=== PATIENT | male | born 1965 | race Caucasian/White ===

== ENCOUNTER 2022-05-19 14:00 | Outpatient (CLI) | payer BC, SELFPAY ==
--- NOTE | 2022-05-19 13:30 | CRLHL7_ITS ---
For Patients: As a result of the Century Cures Act, medical imaging exams and procedure reports are released immediately into your electronic medical record. You may view this report before your referring provider. If you have questions, please contact your health care provider. INDICATION: Dysuria. TECHNIQUE: CT abdomen and pelvis without contrast. COMPARISON: None. FINDINGS: Lower chest: Calcified left lower lobe granuloma. ABDOMEN: Liver: Normal attenuation. Gallbladder and biliary: Normal gallbladder without radiopaque stone. Normal caliber bile ducts. Spleen: Calcified splenic granuloma. Pancreas: The noncontrast pancreas is homogeneous in attenuation without peripancreatic inflammatory changes or ductal dilatation. Adrenal glands: Normal adrenal glands. Kidneys and ureters: Normal attenuation. No radio-opaque calculi. No hydroureteronephrosis. GI tract: The stomach is relatively decompressed. Normal caliber small and large bowel loops. Normal appendix. Vascular structures: Normal caliber abdominal aorta. Lymph nodes: No lymphadenopathy in the abdomen or pelvis by size criteria. Peritoneum: No free air, free fluid, or focal drainable fluid collection. PELVIS: Genitourinary system: Although relatively decompressed there is circumferential wall thickening of the urinary bladder. Normal size prostate. Symmetric seminal vesicles. Calcified vas deferens suggesting underlying diabetes. SKELETAL STRUCTURES AND SOFT TISSUES: No suspicious lytic or blastic lesions. IMPRESSION: 1. No acute abdominal pelvic process. No obstruction. No nephrolithiasis. No hydroureteronephrosis. 2. Although relatively decompressed there is suggestion of circumferential wall thickening of the urinary bladder. Recommend correlation with urinalysis if not already performed to assess for underlying cystitis. Please note that all CT scans at this facility use dose modulation, iterative reconstruction, and/or weight-based dosing when appropriate to reduce radiation dose to as low as reasonably achievable. Dictated by Vic Cooper MD @ 05/19/2022 3:35:44 PM (Electronically Signed)
--- OUTSIDE RECORDS SUMMARY | 2022-05-19 14:02 | XMS_ITS | Encounter Summary ---
:1965 Author Organization [facility] Address [address] [place] [address] Care Team Providers Name Role Phone [facility], [facility]- Reason for Visit Reason Onset Date Comments Results 05/11/2022 Encounter Details Date Type Department Care Team Description 05/11/2022 Telephone [facility] Refugio Leigh RN Results Emergency Dept [address] [place] [address] Social History Tobacco Use Types Packs/Day Years Used Date Smoking Tobacco: Never Assessed Sex Assigned at Date Recorded Not on file documented as of this encounter Miscellaneous Notes Telephone Encounter - Refugio Leigh RN - 05/11/2022 3:52 PM CDT [facility] () Emergency Department Lab result notification [facility] ED lab result protocol used STD Testing Reason for call Notify of lab results, assess symptoms, review ED providers recommendations/discharge instructions (if necessary) and advise per ED lab result f/u protocol Lab Result (including Rx patient on, if applicable) Component Latest Ref Rng & Units 05/08/2022 Chlamydia Trachomatis PCR Negative Negative N Gonorrhea PCR Negative Negative paper machine tender (Patient???s current Symptoms), include time called. 3:53 PM - patient calling to get test results - continues with symptoms Genitourinary symptoms: continues with burning in urethra - says he cannot sleep Fever: No Testicular swelling/pain: No RN Recommendations/Instructions per [facility] ED lab result protocol Patient notified of lab result and treatment recommendations. We discussed ED calls on positive results and will not call on negative results. Advised of negative results and to follow up for additional assessment in 24 hours due to ongoing symptoms - preferably with a primary care clinic - He begins to go into dynamics related to his situation or clinic situation/life and discuss that tech writer doesn'tfeel his symptoms are emergent at this time and he could follow up with PCP/urgent care but if he ishaving testicular pain, fevers, swelling, abdominal pain, severe pain to return - discussed we can have him speak with triage review any severe symptoms or need to return to ED or help patient find an appointment within 24 hours with primary care. Please Contact your PCP clinic or return to the Emergency department if your: ??? Symptoms return. ??? Symptoms do not improve after 3 days on antibiotic. ??? Symptoms do not resolve after completing antibiotic. ??? Symptoms worsen or other concerning symptom's. PCP follow-up Questions asked: YES Refugio Leigh RN [facility] Emergency Dept Lab Result RN documented in this encounter Plan of Treatment Not on filedocumented as of this encounter Visit Diagnoses Not on filedocumented in this encounter Care Teams Clip Baker Relationship Specialty Start Date End Date [facility] And PCP - General 05/08/22 [facility] [address] [place] [address] documented as of this encounter
--- OUTSIDE RECORDS SUMMARY | 2022-05-19 14:02 | XMS_ITS | Clinical Summary ---
:1965 Author Organization [facility] [place] [address] Care Team Providers Name Role Phone Vic Jack MD Primary Care Provider [phone] Allergies Active Allergy Reactions Severity Noted Date Comments Penicillins Hives 07/08/2007 Medications Medication Sig Dispensed Refills Start Date End Date Status CPAPIndications: GABE All CPAP supplies 1 unit 12 04/04/2018 Active (obstructive sleep - mask, hose, etc. apnea) zolpidem (AMBIEN) 10 TAKE 1 TABLET BY 30 tablet 5 06/23/2018 Active mg tabletIndications: MOUTH AT BEDTIME Insomnia, unspecified NEEDED FOR type SLEEP Active Problems Problem Noted Date GABE (obstructive sleep apnea) 07/22/2015 Plantar fasciitis 07/06/2012 Immunizations Name Administration Dates Next Due Hepatitis A (Adult) 07/15/2015 Influenza, IIV3 (Age >=3 years) 05/20/2012, 06/04/2010 Influenza, IIV4 07/15/2015 Tdap 07/02/2012 Typhoid (injectable) 07/15/2015 Family History Medical History Relation Name Comments Cancer Maternal Grandmother Lung Diabetes Maternal Grandmother Type 1 Cancer-colon Paternal Aunt Cancer Paternal Grandfather Esophageal Heart Disease Paternal Grandfather Relation Name Status Comments Brother Alive Daughter Alive Father Alive Maternal Grandfather Maternal Grandmother Mother Alive Paternal Aunt Paternal Grandfather Paternal Grandmother Sister Alive Son Alive Social History Tobacco Use Types Packs/Day Years Used Date Never Smoker Smokeless Tobacco: Never Used Tobacco Cessation: Counseling Given: Yes Alcohol Use Standard Drinks/Week Comments Yes 0 (1 standard drink = 0.6 oz pure alcoho l) Social Alcohol Habits Answer Date Recorded How often do you have a drink containing alcohol? Not asked How many drinks containing alcohol do you have on a typical Not asked day when you are drinking? How often do you have six or more drinks on one occasion? No t asked Comment: Social 07/06/2012 Sex Assigned at Date Recorded Not on file Obstetrics History Last Filed Vital Signs Vital Sign Reading Time Taken Comments Blood Pressure 134/84 04/03/2018 1:05 PM CDT Pulse 68 04/03/2018 1:05 PM CDT Temperature 36.8 ??C (98.3 ??F) 06/06/2016 11:49 AM CDT Respiratory Rate 16 04/03/2018 1:05 PM CDT Oxygen Saturation 97% 01/15/2015 8:36 AM CDT Inhaled Oxygen Concentration - - Weight 88.2 kg (194 lb 6.4 oz) 04/03/2018 1:05 PM CDT Height 173.5 cm (5' 8.3) 07/02/2012 10:32 AM COSMETICIAN Body Mass Index 29.3 07/02/2012 10:32 AM COSMETICIAN Plan of Treatment Health Maintenance Due Date Last Done Comments COVID-19 vaccine series (#1) 1965 BMI (ht and wt on same day) for age 0702/14/1982 18+ Hepatitis C screening for age 18-79 02/14/1982 Zoster (shingles) series for age 50+ 02/14/2014 (1 of 2) Lipids for age 45-75 07/02/2017 07/02/2012 Depression screening for age 12+ 04/03/2019 04/03/2018 Colonoscopy through age 75 10/10/2020 10/11/2015, 6 Influenza for age 50-64 04/06/2022 07/15/2015, 05/20/2012, 06/04/2010 Tetanus booster 07/02/2022 07/02/2012 Tdap Completed 07/02/2012 Results Not on filefrom Last 3 Months Insurance Payer Benefit Plan / Subscriber ID Effective Dates Phone Addre ss Type Group BLUE CROSS BLUE CROSS OF [id number] 2014-Present [address] [address] [place] [address] Guarantor Name Account Type Relation to Date of Phone Billing Address Patient Daniel Mccrary Personal/Famil Self 1965 [address] (Home) [facility] [address] Care Teams Move Coordinator Relationship Specialty Start Date End Date Vic Jack MD PCP - General Family Practice 09/26/11
--- OUTSIDE RECORDS SUMMARY | 2022-05-19 14:02 | XMS_ITS | Clinical Summary ---
:1965 Author Organization [facility] Address [address] [place] [address] Care Team Providers Name Role Phone [facility], [facility]- Allergies Active Allergy Reactions Severity Noted Date Comments Penicillin G 05/08/2022 Encounters Date Type Specialty Care Team Description 05/11/2022 Telephone EMERGENCY MEDICINE Refugio Leigh RN R esults 05/08/2022 Emergency EMERGENCY MEDICINE William Humphreys MD Ure thritis from Last 3 Months Social History Tobacco Use Types Packs/Day Years Used Date Smoking Tobacco: Never Assessed Sex Assigned at Date Recorded Not on file Last Filed Vital Signs Vital Sign Reading Time Taken Comments Blood Pressure 158/92 05/08/2022 3:27 AM CDT Pulse 82 05/08/2022 3:27 AM CDT Temperature 36.4 ??C (97.6 ??F) 05/08/2022 3:27 AM CDT Respiratory Rate 20 05/08/2022 3:27 AM CDT Oxygen Saturation 100% 05/08/2022 3:27 AM CDT Inhaled Oxygen Concentration - - Weight - - Height - - Body Mass Index - - Plan of Treatment Health Maintenance Due Date Last Done Comments ADVANCE CARE PLANNING 1965 ANNUAL REVIEW OF HM ORDERS 1965 CT COLONOGRAPHY 1965 FIT-DNA (Cologuard) 1965 FIT 1965 FLEX SIG 1965 HEPATITIS B IMMUNIZATION (1 1965 of 3 - 3-dose series) YEARLY PREVENTIVE VISIT 1965 COVID-19 Vaccine (#1) 1965 COLONOSCOPY 02/14/1974 COLORECTAL CANCER SCREENING 02/14/1974 HIV SCREENING 02/14/1979 HEPATITIS C SCREENING 02/14/1982 LIPID 02/14/1999 ZOSTER IMMUNIZATION (1 of 2) 02/14/2014 PHQ-2 (once per calendar 08/06/2021 year) INFLUENZA VACCINE (#1) 2022 07/15/2015, 05/20/2012, 06/04/2010 DTAP/TDAP/TD IMMUNIZATION (2 07/02/2022 07/02/2012 - Td or Tdap) IPV IMMUNIZATION Aged Out No longer eligi ble based on patient's age to complete this to pic MENINGITIS IMMUNIZATION Aged Out No longe r eligible based on patient's age to complete [facility] to [facility] Pneumococcal Vaccine: Aged Out No longer eligible based Pediatrics (0 to 5 Years) and on patient's age to At-Risk Patients (6 to 64 comple te this topic Years) Procedures Procedure Name Priority Date/Time Associated Comments Diagnosis NEISSERIA GONORRHOEAE STAT 05/08/2022 4:42 AM Results for this PCR CDT procedure are i n the results section. CHLAMYDIA TRACHOMATIS STAT 05/08/2022 4:42 AM Results for this PCR CDT procedure are i n the results section. ROUTINE UA WITH STAT 05/08/2022 3:27 AM Result s for this MICROSCOPIC CDT procedure are i n the results section. from Last 3 Months Results Neisseria gonorrhoea PCR (05/08/2022 4:42 AM CDT) [facility] Method Time Signature Neisseria Negative Negative 05/09/2022 [facility] gonorrhoeae 12:19 PM CDT LABORATORY Comment: Negative for N. gonorrhoeae rRN A by flat folding machine operator mediated amplification. A negative result by flat folding machine operator mediate d amplification does not preclude the presence of C. trachomatis infection bec ause results are dependent on proper and adequate collection, absence of inhibito rs and sufficient rRNA to be detected. Specimen Anatomical Collection Method Collection Time Receive d Time (Source) Location / / Volume Laterality Urine URETHRAL STRUCTURE Non-blood 05/08/2022 4:42 AM 10/2021 4:49 / Unknown Collection / CDT AM CDT Unknown William Humphreys MD LAB - MICRO GENERAL ORDERABL ES Performing Organization Address City/State/ZIP Code Phon e Number [facility] [place] [id number] Diag. Lab [address] [facility], [address] Chlamydia trachomatis PCR (05/08/2022 4:42 AM CDT) [facility] [employer] Method Time Signature Chlamydia Negative Negative 05/09/2022 [facility] trachomatis 12:19 PM CDT LABORATORY Comment: A negative result by transcript ion mediated amplification does not preclude the presence of C. trachomatis infection because results are dependent on proper and adequate collection, absence of inhibito rs and sufficient rRNA to be detected. Specimen Anatomical Collection Method Collection Time Receive d Time (Source) Location / / Volume Laterality Urine URETHRAL STRUCTURE Non-blood 05/08/2022 4:42 AM 10/2021 4:49 / Unknown Collection / CDT AM CDT Unknown William Humphreys MD LAB - MICRO GENERAL ORDERABL ES Performing Organization Address City/State/ZIP Code Phon e Number [facility]AT[facility] [place] [address] Diag. Lab [address] [facility], [address] (ABNORMAL) UA with Microscopic (05/08/2022 3:27 AM CDT) [facility] Method Time Signature Color Urine Yellow Colorless, 05/08/2022 [facility] Straw, 3:58 AM CDT Light Yellow, Yellow Appearance Urine Clear Clear 05/08/2022 [facility] Y 3:58 AM CDT Glucose Urine Negative Negative 05/08/2022 LABORATORY mg/dL 3:58 AM CDT Bilirubin Urine Negative Negative 05/08/2022 LABORATORY 3:58 AM CDT Ketones Urine 10 (A) Negative 05/08/2022 LABORATORY mg/dL 3:58 AM CDT Specific [place] 1.030 1.003 - 05/08/2022 [facility] Y Urine 1.035 3:58 AM CDT Blood Urine Negative Negative 05/08/2022 [facility] 3:58 AM CDT pH Urine 5.5 5.0 - 7.0 05/08/2022 LABORATORY 3:58 AM CDT Protein Albumin 30 (A) Negative 05/08/2022 LABORATORY Urine mg/dL 3:58 AM CDT Urobilinogen Normal Normal, 2.0 05/08/2022 LABORATORY Urine mg/dL 3:58 AM CDT Nitrite Urine Negative Negative 05/08/2022 [facility] 3:58 AM CDT Leukocyte Negative Negative 05/08/2022 [facility] Esterase Urine 3:58 AM CDT Mucus Urine Present (A) None Seen 05/08/2022 [facility] /LPF 3:58 AM CDT RBC Urine 0 <=2 /HPF 05/08/2022 [facility] 3:58 AM CDT WBC Urine 1 <=5 /HPF 05/08/2022 [facility] 3:58 AM CDT Specimen Anatomical Collection Method Collection Time Receive d Time (Source) Location / / Volume Laterality Urine URINE SPECIMEN Non-blood 05/08/2022 3:27 AM 022 3:49 OBTAINED BY CLEAN Collection / CDT AM CDT CATCH PROCEDURE / Unknown Unknown William Humphreys MD LAB - URINE ORDERABLES Performing Organization Address City/State/ZIP Code Phon [place] [address] Care Lab [address] Lab (1st floor, no room number) from Last 3 Months Insurance Payer Benefit Plan / Subscriber ID Effective Dates Phone Addre ss Type Group BCBS BCBS OUT OF [id number] 2022-[facility] [phone] [address] [address] [place] [address] Guarantor Name Account Type Relation to Date of Phone Billing Address Patient Daniel Mccrary Personal/Famil Self 1965 [address] (Home) [place] [id number] Care Teams Business Objects Consultant Relationship Specialty Start Date End Date [facility] And PCP - General 05/08/[address] [facility] [place] [address]
--- OUTSIDE RECORDS SUMMARY | 2022-05-19 14:02 | XMS_ITS | Encounter Summary ---
:1965 Author Organization [facility] Address [address] [place] [address] Care Team Providers Name Role Phone [facility], [facility]- Encounter Details Date Type Department Care Team Description 05/08/2022 [facility] William Humphreys MD Urethritis Emergency Dept [facility] [address] [place] [address] [facility] [phone] [place], [place] [id number] (Wo rk) Social History Tobacco Use Types Packs/Day Years Used Date Smoking Tobacco: Never Assessed Sex Assigned at Date Recorded Not on file documented as of this encounter Last Filed Vital Signs Vital Sign Reading Time Taken Comments Blood Pressure 158/92 05/08/2022 3:27 AM CDT Pulse 82 05/08/2022 3:27 AM CDT Temperature 36.4 ??C (97.6 ??F) 05/08/2022 3:27 AM CDT Respiratory Rate 20 05/08/2022 3:27 AM CDT Oxygen Saturation 100% 05/08/2022 3:27 AM CDT Inhaled Oxygen Concentration - - Weight - - Height - - Body Mass Index - - documented in this encounter Discharge Instructions AttachmentsThe following attachments cannot be sent through Care Everywhere. Urethritis in Men (Luxembourger)documented in this encounter ED Notes Tenisha Shi RN - 05/08/2022 3:26 AM CDT Pt presents with burning/itchy with urination x10 days. Also notes fatigue. Started Cipro on Wednesday, saw improvement but now feels worse Triage Assessment Row Name 05/08/22 0326 Triage Assessment (Adult) Airway WDL WDL Cognitive/Neuro/Behavioral WDL Cognitive/Neuro/Behavioral WDL WDL William Humphreys MD - 05/08/2022 3:13 AM CDT History Chief Complaint: UTI The history is provided by the patient. Daniel Mccrary is a 57 year old male with history of GABE who presents with UTI. Patient reports he has been experiencing constant burning sensation with urination for past 10 days. He also endorses urinary frequency. He notes he recently had a new sexual partner, but reports he had protected sex. Patient reports he has been on Cipro for past 6 days. He endorses feeling hot and cold. He states he is otherwise healthy. He reports no measured fever, genital rash, or penile discharge. Review of Systems Constitutional: Positive for chills. Negative for fever. Genitourinary: Positive for dysuria and frequency. Negative for penile discharge. Skin: Negative for rash (genital). All other systems reviewed and are negative. Allergies: Penicillin G Medications: CPAP Zolpidem Past Medical History: GABE Past Surgical History: Hernia repair, left Shoulder arthroscopy, right Tonsillectomy Adenoidectomy Vasectomy Colonoscopy Social History: The patient presents to the ED alone PCP: [facility], [facility] Physical Exam Patient Vitals for the past 24 hrs: BP Temp Temp src Pulse Resp SpO2 05/08/22 0327 (!) 158/92 97.6 ??F (36.4 ??C) Temporal 82 20 100 % Physical Exam Constitutional: Oriented to person, place, and time. HENT: Head: Normocephalic. Mouth/Throat: Oropharynx is clear and moist. Eyes: EOM are normal. Pupils are equal, round, and reactive to light. Neck: Neck supple. Cardiovascular: Normal rate, regular rhythm and normal heart sounds. Exam reveals no gallop and no friction rub. No murmur heard. Pulmonary/Chest: Effort normal and breath sounds normal. No respiratory distress. No wheezes. No rales. No reproducible chest wall pain. Abdominal: Soft. No distension. No tenderness. No rebound and no guarding. Musculoskeletal: Normal range of motion. Neurological: Alert and oriented to person, place, and time. Moves all 4 extremities spontaneously Skin: No rash noted. No pallor. : Normal anatomy. No rash noted. No testicular tenderness. Emergency Department Course Laboratory: Labs Ordered and Resulted from Time of ED Arrival to Time of ED Departure ROUTINE UA WITH MICROSCOPIC - Abnormal Result Value Color Urine Yellow Appearance Urine Clear Glucose Urine Negative Bilirubin Urine Negative Ketones Urine 10 (*) Specific Canyon Urine 1.030 Blood Urine Negative pH Urine 5.5 Protein Albumin Urine 30 (*) Urobilinogen Urine Normal Nitrite Urine Negative Leukocyte Esterase Urine Negative Mucus Urine Present (*) RBC Urine 0 WBC Urine 1 CHLAMYDIA TRACHOMATIS PCR NEISSERIA GONORRHOEAE PCR Emergency Department Course: Reviewed: I reviewed nursing notes, vitals, past medical history and Care Everywhere Assessments: 0421 I obtained history and examined the patient as noted above. I rechecked the patient and explained findings. Interventions: 0518 Zithromax 1000 mg PO 0518 Rocephin in Xylocaine 500 mg IM Disposition: The patient was discharged to home. Impression & Plan Medical Decision Making: Daniel Mccrary is a 57 year old male who presents for evaluation of UTI. This is consistent with urethritis. Given age and risk factors will treat empirically for GC/Chlam and send PCR. No definitive signs of other STI's although patient cautioned he needs testing for HIV, syphilis, and hepatitis. Doubt straight UTI. No signs of systemic symptoms. No signs of pyelonephritis. No signs of acute seriousautoimmune disease but needs to follow up with primary for further evaluation. Diagnosis: ICD-10-CM 1. Urethritis N34.2 Scribe Disclosure: I, Boone Azul, am serving as a scribe at 4:21 AM on 05/08/2022 to document services personally performed by William Humphreys MD based on my observations and the provider's statements to me. William Humphreys MD 05/08/22 0742 documented in this encounter Miscellaneous Notes Result Encounter Note - Mendoza Otoole RN - 05/08/2022 5:22 AM CDT Final result for both N. Gonorrhoeae PCR and Chlamydia Trachomatis PCR are NEGATIVE. No treatment or change in treatment per [facility] ED Lab Result N. Gonorrhea AND/OR Chlamydia T. protocol. documented in this encounter Plan of Treatment Not on filedocumented as of this encounter Procedures Procedure Name Priority Date/Time Associated Comments [...] procedure are i n the results section. documented in this encounter Results Neisseria gonorrhoea PCR (05/08/2022 4:42 AM CDT) [facility] Method Time Signature Neisseria Negative Negative 05/09/2022 [facility] gonorrhoeae 12:19 PM CDT LABORATORY Comment: Negative for N. gonorrhoeae rRN A by tobacco cutter mediated amplification. A negative result by tobacco cutter mediate d amplification does not preclude the [...] Code Phon e Number [facility] LABORATORY [facility] [place] [phone] Diag. Lab [address] [facility], [address] Chlamydia trachomatis PCR (05/08/2022 4:42 AM CDT) [facility] Method Time Signature Chlamydia Negative Negative 05/09/2022 [...] Code Phon e Number UU IDD LABORATORY [facility] [place] [phone] Diag. Lab [address] [facility], [address] (ABNORMAL) UA with Microscopic (05/08/2022 3:27 AM CDT) [facility] Method Time Signature Color Urine Yellow Colorless, 05/08/2022 LABORATORY Straw, 3:58 AM CDT Light Yellow, Yellow Appearance Urine Clear Clear 05/08/2022 [facility] LABORATOR Y 3:58 AM CDT Glucose Urine Negative Negative 05/08/2022 LABORATORY mg/dL 3:58 AM CDT Bilirubin Urine Negative Negative 05/08/2022 [facility] LABORATORY 3:58 AM CDT Ketones Urine 10 (A) Negative 05/08/2022 LABORATORY mg/dL 3:58 AM CDT Specific Canyon 1.030 1.003 - 05/08/2022 LABORATOR Y Urine 1.035 3:58 AM CDT Blood Urine Negative Negative 05/08/2022 LABORATORY 3:58 AM CDT pH Urine 5.5 5.0 - 7.0 05/08/2022 [facility] LABORATORY 3:58 AM CDT Protein Albumin 30 (A) Negative 05/08/2022 LABORATORY Urine mg/dL 3:58 AM CDT Urobilinogen Normal Normal, 2.0 05/08/2022 LABORATORY Urine mg/dL 3:58 AM CDT Nitrite Urine Negative Negative 05/08/2022 [facility] LABORATORY 3:58 AM CDT Leukocyte Negative Negative 05/08/2022 LABORATORY Esterase Urine 3:58 AM CDT Mucus Urine Present (A) None Seen 05/08/2022 [facility] LABORATORY /LPF 3:58 AM CDT RBC Urine 0 <=2 /HPF 05/08/2022 [facility] LABORATORY 3:58 AM CDT WBC Urine 1 <=5 /HPF 05/08/2022 LABORATORY 3:58 AM CDT Specimen Anatomical Collection Method Collection Time Receive d Time (Source) Location / / Volume Laterality Urine URINE SPECIMEN Non-blood 05/08/2022 3:27 AM 022 3:49 OBTAINED BY CLEAN Collection / CDT AM CDT CATCH PROCEDURE / Unknown Unknown William Humphreys MD LAB - URINE ORDERABLES Performing Organization Address City/State/ZIP Code Phon [place] [address] Care Lab [address] [facility] Lab (1st floor, no room number) documented in this encounter Visit Diagnoses Diagnosis Urethritis Urethritis, unspecified documented in this encounter Administered Medications Inactive Administered Medications - up to 3 most recent administrations Medication Order MAR Action Action Date Dose Rate Site azithromycin (ZITHROMAX) tablet Given 05/08/2022 5:18 AM CDT 1,0 00 mg 1,000 mg STAT, 1,000 mg, Oral, ONCE, On 05/08/22 at 0430, For 1 dose, Indications: sti cefTRIAXone (ROCEPHIN) 500 mg in Given 05/08/2022 5:18 AM CDT 50 0 mg Left Deltoid lidocaine (PF) (XYLOCAINE) 1 % injection STAT, 500 mg, Intramuscular, ONCE, On 05/08/22 at 0430, For 1 dose, Indications: sti documented in this encounter Active and Recently Administered Medications Times are shown in CDT. Scheduled Medication Order 05/06/2022 05/07/2022 05/08/2022 azithromycin (ZITHROMAX) tablet 1,000 mg (COMPLETED) 517 (Given - Provider: Shikha Briones RN) STAT, 1,000 mg, Oral, ONCE, On Mon at 0430, For 1 dose, Indications: sti cefTRIAXone (ROCEPHIN) 500 mg in lidocai ne (PF) (XYLOCAINE) 1 % injection (COMPLETED) 517 (Given - Provid er: Shikha Briones RN) STAT, 500 mg, Intramuscular, ONCE, On Mo n 05/08/22 at 0430, For 1 dose, Indications: sti documented in this encounter Care Teams Stringing Machine Operator Relationship Specialty Start Date End Date [facility] And PCP - General 05/08/22 [facility] [address] [place] [id number] documented as of this encounter
== END 2022-05-19 14:01 | disposition home or self-care (01) ==
LOC: CT 14:01
PROVIDERS: PCP Family Medicine; Visit Provider Family Medicine
DX: R30.0 Dysuria (principal)
CPT/HCPCS: 74176; 80048; 84153; 86592; 86703; 87086

== ENCOUNTER 2022-10-18 09:27 | Outpatient (CLI) | payer BC, SELFPAY | END 2022-10-18 09:28 | disposition home or self-care (01) | PROVIDERS: PCP Family Medicine; Visit Provider Family Medicine | DX: C43.9 Malignant melanoma of skin, unspecified (principal); Z13.6 Encounter for screening for cardiovascular disorders; Z12.5 Encounter for screening for malignant neoplasm of prostate | CPT/HCPCS: 80053; 80061; 84153; 85025; 86140 ==

== ENCOUNTER 2024-07-02 09:02 | Outpatient (CLI) | payer OTHER, SELFPAY ==
--- OUTSIDE RECORDS SUMMARY | 2024-07-02 09:05 | XMS_ITS | Clinical Summary ---
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 Gender Identity Not on file Sexual Orientation Not on file Last Filed Vital Signs Vital Sign Reading Time Taken Comments Blood Pressure 158/92 05/08/2022 3:27 AM CDT Pulse 82 05/08/2022 3:27 AM CDT Temperature 36.4 C (97.6 F) 05/08/2022 3:27 AM CDT Respiratory Rate 20 05/08/2022 3:27 AM CDT Oxygen Saturation 100% 05/08/2022 3:27 AM CDT Inhaled Oxygen Concentration - - Weight - - Height - - Body Mass Index - - Plan of Treatment Health Maintenance Due Date Last Done Comments ADVANCE CARE PLANNING 1965 ANNUAL REVIEW OF HM ORDERS 1965 CT COLONOGRAPHY 1965 FIT 1965 FLEX SIG 1965 GLUCOSE 1965 YEARLY PREVENTIVE VISIT 1965 sDNA (Cologuard) 1965 COLONOSCOPY 02/14/1974 COLORECTAL CANCER SCREENING 02/14/1974 HIV SCREENING 02/14/1979 HEPATITIS C SCREENING 02/14/1982 LIPID 2004 ZOSTER IMMUNIZATION (1 of 2) 02/14/2014 DTAP/TDAP/TD IMMUNIZATION (2 - Td or Tdap) 07/02/2022 07/02/2012 PHQ-2 (once per calendar year) 2023 COVID-19 Vaccine (1 - 2023-2 5 season) 2024 INFLUENZA VACCINE (#1) 2024 5, 05/20/2012, 06/04/2010 RSV VACCINE (1 - 1-dose 75+ series) 02/14/2039 HPV IMMUNIZATION Aged Out No longer e ligible based on patient's age to complete this topic MENINGITIS IMMUNIZATION Aged Out No l onger eligible based on patient's age to complete this topic Pneumococcal Vaccine: Pediatrics (0 to 5 Years) and At-Risk Patients (6 to 64 Years) Aged Out No longer eligible b ased on patient's age to complete this topic RSV MONOCLONAL ANTIBODY Aged Out No l onger eligible based on patient's age to complete this topic [place] [address] [place] [address] OUT OF STATE Care Teams Electrician Third Relationship Specialty Start Date End Date [facility] [address] [place] [address] PCP - General 05/08/22
--- OUTSIDE RECORDS SUMMARY | 2024-07-02 09:05 | XMS_ITS | Referral Summary ---
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
--- OUTSIDE RECORDS SUMMARY | 2024-07-02 09:05 | XMS_ITS | Data Portability ---
Author Organization [place] [facility] Address [address] [place] [address] Assessment No assessment recorded. Plan of Treatment Reminders Order Date Submit Date Provider Last Modified By Organization Details Last Modified Time Details Appointments None recorded. Lab PSA, serum or plasma 2021 022 [email or web address] 2 [facility], [address], [place], [address], 2 11:16:54 urinalysi s, dipstick 2021 022 [email or web address] 2 [facility], [facility], [facility] [address], [place], [address], 2 11:16:54 urinalysi s, dipstick 2021 022 [email or web address] 2 [facility], [address], [address], [place], [address], 2 16:38:15 urinalysi s, dipstick 2022 023 [email or web address] 2 [facility], [address], [address], [place], [address], 3 11:18:21 urinalysi s, dipstick 2022 023 [email or web address] 2 [facility], [address], [address], [place], [address], 17:30:55 Referral None recorded. Procedures cystoscop y (PROC) 2021 [email or web address] Not available 11:32:59 Surgeries None recorded. Imaging None recorded. Medication Orders Uribel 118 mg-10 mg-40.8 mg-36 mg capsule 2021 022 [facility]13, [address], [place], [place], [id number], 10:42:46 tamsulosi n 0.4 mg capsule 2021 022 [place] [facility]56807, [address], [place], [place], [id number], 11:17:03 tamsulosi n 0.4 mg capsule 2021 022 [place] [facility] #35378, [address], [place], [place], [id number], 16:38:23 tamsulosi n 0.4 mg capsule 2022 023 [place] [facility] #58851, [address], [place], [place], [id number], 11:18:29 tamsulosi n 0.4 mg capsule 2022 023 [facility] #77682, [address], [place], [place], [phone], 17:31:01 Patient TargetsNo targets recorded. Patient Instructions Encounter Date Encounter Id Patient Instructions Last Modified By Organization Details Last Modified Time 05/25/2022 [id number] Reassuring eval to date, will approach with both diagnostics and therapeutics, while we understand the etiology, which could be early BPH/LUTS coupled with fear from his recent trip. PCR culture with full add-on to rule out occult UTI/STI Begin Flomax PRN Uribel Follow up 1-2 weeks for office cystoscopy Not available 05/25/2022 11:16:26 06/01/2022 [id number] Patient improvin g with Flomax, cystoscopy supports early bilobar BPH with some early obstruction. Will continue medication, follow up with me in Nov 2022. Not available 06/01/2022 16:38:57 11/16/2022 [id number] Flomax working well, consistent with work up, no complaints. Will continue - with me in one year. Not available 11/16/2022 11:18:20 07/19/2023 [id number] Daniel is doing very nicely on Flomax alone - we'll continue this. We reviewed BPH/LUTS as a chronic condition, and discussed next steps should they ever be necessary. In interim I recommend an occasional RADHIKA and annual PSA screening. Not available 07/19/2023 17:31:35 Reason for Referral None Reported. Results Created Date Observation Date Name Description Value Unit Range Abnormal Flag Note LastModifiedBy Organization Detail LastModifiedTime 05/25/2005/25/2022 urina lysis , dipst ick pH-Status 5.5 Not Available [facility] [address], [place], [address], 05/25/2022 10:46:11 05/25/2005/25/2022 urina lysis , dipst ick Nitrates-Sta tus negati ve Not Available [facility] [address], [place], [address], 05/25/2022 10:46:11 05/25/2005/25/2022 urina lysis , dipst ick Blood-Status Negati ve Not Available [facility] [address] [facility] [address], [place], [address], 05/25/2022 10:46:11 05/25/20 22 05/25/2022 urina lysis , dipst ick Leuko-Status Negati ve Not Available [address], [place], [address], 05/25/2022 10:46:11 05/25/20 22 05/25/2022 urina lysis , dipst ick Specimen Type Voided Not Available [address], [place], [address], 05/25/2022 10:46:11 05/25/2005/25/2022 PSA, serum or plasm a PSA 0.75 ng/ml 0-4.0 Not Available [address], [place], [address], 05/25/2022 10:20:06 06/01/20 22 06/01/2022 urina lysis , dipst ick pH-Status 7.5 Not Available [address], [place], [address], 06/01/2022 16:23:05 06/01/20 22 06/01/2022 urina lysis , dipst ick Nitrates-Sta tus negati ve Not Available [address], [place], [address], 06/01/2022 16:23:05 06/01/20 22 06/01/2022 urina lysis , dipst ick Blood-Status Negati ve Not Available [address], [place], [address], 06/01/2022 16:23:05 06/01/20 22 06/01/2022 urina lysis , dipst ick Leuko-Status Negati ve Not Available [facility] [address], [place], [address], 06/01/2022 16:23:05 06/01/20 22 06/01/2022 urina lysis , dipst ick Specimen Type Voided Not Available [facility] [address] [facility] [address], [place], [address], 06/01/2022 16:23:05 11/17/19 23 11/16/2022 urina lysis , dipst ick pH-Status 5.5 Not Available [facility] [address] [place] [address] [address], [place], [address], 11/16/2022 10:45:53 11/17/19 23 11/16/2022 urina lysis , dipst ick Urobilinogen -Status 0.2 Not Available [facility], [place], [address], 11/16/2022 10:45:53 11/17/19 23 11/16/2022 urina lysis , dipst ick Nitrates-Sta tus negati ve Not Available [facility], [place], [address], 11/16/2022 10:45:53 11/17/19 23 11/16/2022 urina lysis , dipst ick Blood-Status Negati ve Not Available [facility], [place], [address], 11/16/2022 10:45:53 11/17/19 23 11/16/2022 urina lysis , dipst ick Leuko-Status Negati ve Not Available [facility], [place], [address], 11/16/2022 10:45:53 11/17/1911/16/2022 urina lysis , dipst ick Specimen Type Voided Not Available [facility], [place], [address], 11/16/2022 10:45:53 07/19/20 23 07/19/2023 urina lysis , dipst ick pH-Status 5.5 Not Available [facility] [address] [facility] [address], [place], [address], 07/19/2023 15:07:56 07/19/2007/19/2023 urina lysis , dipst ick Nitrates-Sta tus negati ve Not Available [address], [place], [address], 07/19/2023 15:07:56 07/19/2007/19/2023 urina lysis , dipst ick Blood-Status Negati ve Not Available [facility], [place], [address], 07/19/2023 15:07:56 07/19/2007/19/2023 urina lysis , dipst ick Leuko-Status Negati ve Not Available [address], [place], [address], 07/19/2023 15:07:56 Result Notes None recorded. Problems Name Problem SNOMED Code Status Onset Date Resolution Date Notes Provider Name and Address Organization Details Recorded Time Lower urinary tract symptoms due to benign prostatic hypertrophy 8466130007048 1 Active 2022 Justo grimes MD [address], [address], [facility] 17:30:45 Problem Notes None recorded. Procedures Surgical History Date Name Laterality Status Provider Name and Address Organization Details Recorded Time 12/14/20 23 Bladder Scan completed Gisel Yang [facility] 07/19/2023 15:07:52 08/16/19 23 excision of melanoma completed Blanka Cobos [facility] 11/16/2022 10:44:48 06/01/20 22 CystoscopyMale completed Justo Bey MD [address] [facility],[address], [place], [address], [facility] 06/01/2022 16:37:09 05/25/20 22 PLANT CHANGER/blood draw completed [facility] 05/25/2022 10:20:38 03/06/20 22 Colonoscopy completed [facility] 05/25/2022 10:48:32 08/06/19 13 Vasectomy completed [facility] 05/25/2022 10:49:11 08/06/19 07 Orthopedic Surgery completed [facility] 05/25/2022 10:48:58 08/06/18 92 Hernia Repair completed [facility] 05/25/2022 10:48:47 Imaging Results None recorded. Procedure Notes None recorded. Medical Equipment None Reported. Allergies Allergen ID Allergen Name Allergen Category Reaction Reaction Severity Criticality Documentation Date Start Date Code Code System Note Provider Name and Address Organization Details Recorded Time 456541 Medicinal product containin g penicilli n and acting as antibacte rial agent (product) medicatio n Not available Not available Not available 05/25/2022 29256 05 SNOMED Sandy Montero [facility] 10:44:30 Medications Name Sig Start Date Stop Date Status Note LastModified by Organization Details LastModified Time phenazopyri dine 200 mg tablet TAKE 1 TABLET BY MOUTH THREE TIMES DAILY 11/16 completed Not Available Not Available Not Available prednisone 20 mg tablet TAKE 2 TABLETS BY MOUTH EVERY DAY 11/16 completed Not Available Not Available Not Available ciprofloxac in 500 mg tablet TAKE 1 TABLET BY MOUTH TWICE DAILY 11/16 completed Not Available Not Available Not Available sulfamethox azole 800 mg-trimetho prim 160 mg tablet TAKE 1 TABLET BY MOUTH TWICE DAILY FOR 7 DAYS 11/16 completed Not Available Not Available Not Available oxycodone-a cetaminophe n 5 mg-325 mg tablet TAKE 1 TABLET BY MOUTH EVERY 4 TO 6 HOURS NEEDED FOR PAIN 11/16 completed Not Available Not Available Not Available tamsulosin 0.4 mg capsule Take 1 capsule(s ) every day by oral route. 2023 active Not Available Not Available Not Avai lable doxycycline monohydrate 100 mg capsule TAKE ONE CAPSULE BY MOUTH TWICE A DAY FOR 7 DAYS 11/16 completed Not Available Not Available Not Available cephalexin 500 mg capsule TAKE 1 CAPSULE BY MOUTH THREE TIMES DAILY FOR 10 DAYS 11/16 completed Not Available Not Available Not Available clotrimazol e-betametha sone 1 %-0.05 % topical cream APPLY TOPICALLY TO THE AFFECTED AREA TWICE DAILY 11/16 completed Not Available Not Available Not Available mupirocin 2 % topical ointment APPLY TO EXCISION SITE ON BACK 1-2X DAILY UNTIL WELL HEALED 11/16 completed Not Available Not Available Not Available zolpidem 10 mg tablet TAKE 1 TABLET BY MOUTH EVERY EVENING NEEDED FOR SLEEP active Not Available Not Available No t Available scopolamine 1 mg over 3 days transdermal patch APPLY 1 PATCH TOPICALLY TO THE SKIN EVERY 72 HOURS active Not Available Not Available No t Available naproxen 500 mg tablet TAKE 1 TABLET BY MOUTH TWICE DAILY active Not Available Not Available No t Available Ustell 120 mg-0.12 mg capsule Take 1 capsule twice a day by oral route as needed. 11/16 completed Not Available Not Available Not Available Uro-MP 118 mg-10 mg-40.8 mg-36 mg capsule TAKE 1 CAPSULE BY MOUTH TWICE DAILY 11/16 completed Not Available Not Available Not Available Paxlovid 300 mg (150 mg x 2)-100 mg tablets in a dose pack TAKE DIRECTED ON PACKAGE 11/16 completed Not Available Not Available Not Available Vitals Date Recorded Body height Body mass index (BMI) Body weight Provider Name and Address Organization Details Last Updated DateTime 05/25/2022 172.72 cm 27.1 kg/m2 88286.44 g [facility] 05/25/2022 10:43:57 Date Recorded Body height Body mass index (BMI) Body weight Provider Name and Address Organization Details Last Updated DateTime 06/01/2022 172.72 cm 27.1 kg/m2 65300.44 g Luiza Pond [facility] 06/01/2022 16:22:24 Date Recorded Body height Body mass index (BMI) Body weight Provider Name and Address Organization Details Last Updated DateTime 11/16/2022 172.72 cm 28.1 kg/m2 34956.59 g Blanka Tamrea [facility] 11/16/2022 10:41:28 Date Recorded Body height Body mass index (BMI) Body weight Provider Name and Address Organization Details Last Updated DateTime 07/19/2023 172.72 cm 29.6 kg/m2 57281.51 g Gisel Goddardson [facility] 07/19/2023 15:07:04 Social History Question Answer Notes LastModified by Organizat ion Details LastModified Time Tobacco Smoking Status [facility] 05/25/2022 10:47:46 What Is Your Level Of Alcohol Consumption? Moderate [email or web address] Information not available 05/25/2022 What Is Your Level Of Caffeine Consumption? Occasional [email or web address] Information not available 05/25/2022 Race Equatorial [place]ine[place] [email or web address] Information not available 05/25/2022 Ethnicity Not /Latin o [email or web address] Information not available 05/25/2022 Preferred Language Upper Sorbian [email or web address] Information not available 05/25/2022 Recreational Drug Use No [email or web address] Information not available 05/25/2022 What Was The Date Of Your Most Recent Tobacco Screening? 07/19/2023 [email or web address] Information not available 07/19/2023 What Is Your Relationship Status? Single [email or web address] Information not available 05/25/2022 Do You Use Any Illicit Or Recreational Drugs? No [email or web address] Information not available 05/25/2022 Has Tobacco Cessation Counseling Been Provided? No [email or web address] Information not available 05/25/2022 Do You Or Have You Ever Used Any Other Forms Of Tobacco Or Nicotine? No [email or web address] Information not available 05/25/2022 Sex: Unknown Functional Status None recorded. Mental Status None recorded. Family History Relationship Description Onset Age of this Age Resolved Age Notes LastModified by Organization Details LastModified Time Mother Family history of breast cancer [email or web address] Not available 05/07 10:45:08 Mother Family history of malignant neoplasm [email or web address] Not available 05/07 10:46:46 Maternal Grandmother Family history of malignant neoplasm [email or web address] Not available 05/07 10:46:46 Paternal Grandmother Family history of malignant neoplasm [email or web address] Not available 05/07 10:46:46 Medical History Condition Response Sexually Transmitted Infection N Diabetes N Other N Bleeding Disorder N High Blood Pressure N Kidney Stones N High Cholesterol N GERD/Acid Reflux N Heart Disease N Cancer Y Depression N Lung Disease N Past Encounters Encounter ID Performer Location Encounter Start Date Encounter Closed Date Diagnosis/Indication Diagnosis SNOMED-CT Code Diagnosis ICD10 Code [id number] MD DOMITILA [facility] [place] [address],[address] [address] 05/25/2022 09:42:09 05/31/2022 09:04:11 Lower urinary tract symptoms due to benign prostatic hypertrophy 4353563086 9101 N40.1 Dysuria 61874303 R30.0 Pain in urethra 4757896 N36.8 [id number] MD ZULEMA [place] [address],[address] [address] 06/01/2022 15:53:58 06/05/2022 09:17:28 Lower urinary tract symptoms due to benign prostatic hypertrophy 7735887877 9101 N40.1 [id number] MD DOMITILA [place] [address],[address] [place] [address] 11/16/2022 10:28:40 11/21/2022 11:07:54 Increased frequency of urination 394830705 R35.0 Lower urin tanya tract symptoms due to benign prostatic hypertrophy 7681854064 9101 N40.1 [id number] MD ZULEMA [place] [place] [address],[address] [address] 07/19/2023 14:55:27 07/27/2023 08:50:05 Lower urinary tract symptoms due to benign prostatic hypertrophy 5012576472 9101 N40.1 Health Concerns Section Related Observation LastModified by Organization Detai ls LastModified Time None Recorded Concern Status LastModified by Organization Details LastModified Time None Recorded Advance Directives Directive None Recorded Payers Encounter Date Sequence Insurance Name Policy Number Policy Cerna Covered Member ID Cerna Member ID Guarantor Name 05/25/2022 1 [employer] [id number] 4 Daniel D Hermann [id number] Daniel D Hermann 06/01/2022 1 [place] [id number] Daniel D Hermann [id number] Daniel D Hermann 11/16/2022 1 [place] [id number] Daniel D Hermann [id number] Daniel D Hermann 07/19/2023 1 [place] [id number] Daniel D Hermann [id number] Daniel D Hermann Notes Date Note Type Note Provider Name and Address Organization Details Recorded Time 05/25/2022 text/html 57M with dysuria and pain in urethra when not voiding, along with worsening LUTS, after sexual activity in [facility] one month ago. Reports some baseline LUTS, but does not remember them being so bothersome until 1 month ago. No GH, all UTI/STI testing to date has been negative, empirically treated with ABX x 4 and antiviral, no improvement. Justo Bey MD [address] [place] [address],[address], [address], [facility] 05/25/2022 13:31:02 06/01/2022 text/html 57M returns for cystoscopy. Reports Flomax has helped his LUTS considerably, the Uribel (Ustell) has no effect. He presented to me with dysuria and pain in urethra when not voiding, along with worsening LUTS, after sexual activity in [facility] one month ago. Reports some baseline LUTS, but does not remember them being so bothersome until 1 month ago. No GH, all UTI/STI testing to date has been negative, empirically treated with ABX x 4 and antiviral, no improvement. PCR culture with GC/BV add on was completely negative. Justo Bey MD [address] [place] [address],[address], [place], [address], [facility] 06/01/2022 16:39:12 11/16/2022 text/html 57M returns for BPH/LUTS. Reports Flomax has continued to help his LUTS considerably. Cysto findings:Prostate: Early but moderate bilobar BPH with kissing lobes, 4 cm lengthBladder Neck: high slope, but open/patent, benignBladder Mucosa: No concerning lesions He presented to me with dysuria and pain in urethra when not voiding, along with worsening LUTS, after sexual activity in [facility] one month ago. Reports some baseline LUTS, but does not remember them being so bothersome until 1 month ago.No GH, all UTI/STI testing to date has been negative, empirically treated with ABX x 4 and antiviral, no improvement. PCR culture with GC/BV add on was completely negative. Recent PSA WNL. Justo Bey MD [address] [facility],[address] [place] [address], [address], [facility] 11/16/2022 11:18:33 07/19/2023 text/html 58M returns for BPH/LUTS. Reports Flomax has continued to help his LUTS considerably. Nov 2022 Cysto findings:Prostate: Early but moderate bilobar BPH with kissing lobes, 4 cm lengthBladder Neck: high slope, but open/patent, benignBladder Mucosa: No concerning lesionsHe presented to me with dysuria and pain in urethra when not voiding, along with worsening LUTS, after sexual activity in [facility] one month ago. Reports some baseline LUTS, but does not remember them being so bothersome until 1 month ago.No GH, all UTI/STI testing to date has been negative, empirically treated with ABX x 4 and antiviral, no improvement.PCR culture with GC/BV add on was completely negative. Recent PSA WNL. Justo Bey MD [address] [facility],[address], [place], [address], [facility] 07/19/2023 17:31:56
--- OUTSIDE RECORDS SUMMARY | 2024-07-02 09:05 | XMS_ITS | Clinical Summary ---
Author Organization [facility] Address [place], [place] [address] Care Team Providers Care Plaster Block Layer Name Role Phone Vic Jack MD Primary Care Provider + Allergies Active Allergy Reactions Criticality Noted Date Comments Penicillins Hives 07/08/2007 Medications Medication Sig Dispensed Refills Start Date End Date Status CPAPIndications:GABE (obstructive sleep apnea) All CPAP supplies - mask, hose, etc. 1 unit 12 04/04/2018 Active zolpidem (AMBIEN) 10 mg tabletIndications:Ins omnia, unspecified type TAKE 1 TABLET BY MOUTH AT BEDTIME NEEDED FOR SLEEP 30 tablet 5 06/23/2018 Active Active Problems Problem Noted Date Diagnosed Date GABE (obstructive sleep apnea) 07/22/2015 Plantar fasciitis 07/06/2012 Immunizations Name Administration Dates Next Due Hepatitis A (Adult) 07/15/2015 Influenza, IIV3 (Age >=3 years) 05/20/2012,06/04 Influenza, IIV4 07/15/2015 Tdap 07/02/2012 Typhoid (injectable) 07/15/2015 Family History Medical History Relation Name Comments Cancer Maternal Grandmother Lung Diabetes Maternal Grandmother Type 1 Cancer-colon Paternal Aunt Cancer Paternal Grandfather Esophag eal Heart Disease Paternal Grandfather Relation Name Status Comments Brother Alive Daughter Alive Father Alive Maternal Grandfather Maternal Grandmother Mother Alive Paternal Aunt Paternal Grandfather Paternal Grandmother Sister Alive Son Alive Social History Tobacco Use Types Packs/Day Years Used Date Smoking Tobacco: Never Smokeless Tobacco: Never Tobacco Cessation:Counseling Given: Yes Alcohol Use Standard Drinks/Week Comments Yes 0 (1 standard drink = 0.6 oz pur e alcohol) Social PHQ-2 Answer Date Recorded PHQ-2 Score 0 10/05/2018 Sex and Gender Information Value Date Recorded Sex Assigned at Not on file Gender Identity Not on file Sexual Orientation Not on file Obstetrics History Last Filed Vital Signs Vital Sign Reading Time Taken Comments Blood Pressure 134/84 04/03/2018 1:05 PM CDT Pulse 68 04/03/2018 1:05 PM CDT Temperature 36.8 C (98.3 F) 06/06/2016 11:49 AM CDT Respiratory Rate 16 04/03/2018 1:05 PM CDT Oxygen Saturation 97% 01/15/2015 8:36 AM CDT Inhaled Oxygen Concentration - - Weight 88.2 kg (194 lb 6.4 oz) 04/03/2018 1:05 P M CDT Height 173.5 cm (5' 8.3) 07/02/2012 10:32 AM CS T Body Mass Index 29.3 07/02/2012 10:32 AM CLINICAL LABORATORY MEDICAL DIRECTOR Plan of Treatment Upcoming Encounters Date Type Department Care Team (Late st Contact Info) Description 08/13/2024 1:30 PM CLINICAL LABORATORY MEDICAL DIRECTOR Office Visit [facility] [address] [place] [phone] Shar Harrell MD [address] [facility] [address] [place], [place] [id number] Health Maintenance Due Date Last Done Comments HIV for age 15-65 02/14/1979 BMI (ht and wt on same day) for age 18+ 02/14/1982 Hepatitis C screening for ag e 18-79 02/14/1982 Zoster (shingles) series for age 50+ (1 of 2) 02/14/2014 Lipids for age 45-75 07/02/2017 07/02/2012 Depression screening for age 12+ 04/03/2019 04/03/2018 Colonoscopy through age 75 10/10/202010/10, 10/11/2015 Tetanus booster 07/02/2022 07/02/2012 COVID-19 vaccine series ( season) 2024 Influenza for age 50-64 04/06/2024 07/15/20 15, 05/20/2012, 06/04/2010 Tdap Completed 07/02/2012 Pneumococcal series for age 6-64 Aged Out No longer eligible b ased on patient's age to complete this topic Procedures Procedure Name Priority Date/Time Associated Diagnosis Comments COLONOSCOPY SCREENING Routine 10/11/2015 Special screening for malignant neoplasms, colon LIPID PANEL W REFLEX MEASURED LDL Routine 07/02/2012 11:11 AM CLINICAL LABORATORY MEDICAL DIRECTOR Routine general medical examination at a health care facility from Last 3 Months or Most Recently Relevant to Health Maintenance Results * COLONOSCOPY SCREENING (10/11/2015) Vic Jack MD GI PROCEDURE ORD * (ABNORMAL) LIPID PANEL W REFLEX MEASURED LDL (07/02/2012 11:11 AM CLINICAL LABORATORY MEDICAL DIRECTOR) CHOLESTEROL,TOTAL 151 100 - 199 mg/dL 07/02/2012 12:13 PM CLINICAL LABORATORY MEDICAL DIRECTOR [facility] TRIGLYCERIDES 94 <150 mg/dL 07/02/2012 12:13 PM CLINICAL LABORATORY MEDICAL DIRECTOR [facility] HDL CHOLESTEROL 32(L) >40 mg/dL 2 12:13 PM CLINICAL LABORATORY MEDICAL DIRECTOR [facility] NON-HDL CHOLESTEROL 119 <145 mg/dl 07/02/2012 12:13 PM CLINICAL LABORATORY MEDICAL DIRECTOR [facility] CHOL/HDL RATIO 4.72(H) <4.50 07/02/2012 12:13 PM [facility] LDL CHOLESTEROL 100 <=130 mg/dL 07/02/2012 12:13 PM CLINICAL LABORATORY MEDICAL DIRECTOR [facility] PATIENT STATUS FASTING 07/02/2012 12:13 PM CLINICAL LABORATORY MEDICAL DIRECTOR [facility] Blood specimen (specimen) BLOOD SPECIMEN / Unknown 07/02/2012 11:11 AM CLINICAL LABORATORY MEDICAL DIRECTOR 07/02/2012 11:11 AM CLINICAL LABORATORY MEDICAL DIRECTOR Vic Jack MD CHEMISTR[facility] [address] [place] [id number] from Last 3 Months or Most Recently Relevant to Health Maintenance Care Teams Plaster Block Layer Relationship Specialty Start Date End Date Vic Jack MD PCP - General Family Practice 09/26/11
== END 2024-07-02 09:03 | disposition home or self-care (01) ==
PROVIDERS: PCP Family Medicine; Visit Provider Family Medicine
DX: N40.0 Benign prostatic hyperplasia without lower urinary tract symptoms (principal); Z13.6 Encounter for screening for cardiovascular disorders; Z12.5 Encounter for screening for malignant neoplasm of prostate
CPT/HCPCS: 80048; 80061; G0103

== ENCOUNTER 2024-12-09 11:39 | Outpatient (CLI) | payer OTHER, SELFPAY | END 2024-12-09 11:40 | disposition home or self-care (01) | PROVIDERS: PCP Family Medicine; Visit Provider Family Medicine | DX: R10.9 Unspecified abdominal pain (principal); R53.83 Other fatigue; R19.7 Diarrhea, unspecified | CPT/HCPCS: 80048; 80076; 83735; 85025 ==

== ENCOUNTER 2025-07-28 08:01 | Outpatient (CLI) | payer OTHER, SELFPAY | END 2025-07-28 08:02 | disposition home or self-care (01) | LOC: NFLDREF 07-29 06:26 | PROVIDERS: PCP Family Medicine; Referring Provider Family Medicine; Visit Provider Family Medicine | DX: Z12.5 Encounter for screening for malignant neoplasm of prostate (principal); Z13.6 Encounter for screening for cardiovascular disorders | CPT/HCPCS: 80061; G0103 ==